=== PATIENT | female | born 1935 | race Two or more races ===

== ENCOUNTER 2018-10-18 10:43 | Outpatient (CLI) | payer MEDICARE | END 2018-10-18 23:59 | disposition home or self-care (01) | LOC: WOU 10:43 | PROVIDERS: ATTEND Podiatrist Foot & Ankle Surgery | DX: L97.512 Non-pressure chronic ulcer of other part of right foot with fat layer exposed (principal); L03.115 Cellulitis of right lower limb; M20.41 Other hammer toe(s) (acquired), right foot; Z79.82 Long term (current) use of aspirin; Z87.891 Personal history of nicotine dependence | CPT/HCPCS: 11042; A6402; Z7610 ==

== ENCOUNTER 2018-10-25 10:45 | Outpatient (CLI) | payer MEDICARE | END 2018-10-25 23:59 | disposition home health service (06) | LOC: WOU 10:45 | PROVIDERS: ATTEND Podiatrist Foot & Ankle Surgery | DX: L84 Corns and callosities (principal); M20.41 Other hammer toe(s) (acquired), right foot; R60.0 Localized edema; Z87.2 Personal history of diseases of the skin and subcutaneous tissue; Z79.82 Long term (current) use of aspirin | CPT/HCPCS: A6402; G0463; Z7610 ==

== ENCOUNTER 2018-11-11 12:43 | Outpatient (CLI) | payer MEDICARE | END 2018-11-11 23:59 | disposition home health service (06) | LOC: WOU 12:43 | PROVIDERS: ATTEND Podiatrist Foot & Ankle Surgery | DX: L89.892 Pressure ulcer of other site, stage 2 (principal); M20.41 Other hammer toe(s) (acquired), right foot; M79.671 Pain in right foot; Z79.82 Long term (current) use of aspirin | CPT/HCPCS: A6402; G0463 ==

== ENCOUNTER 2018-11-25 11:00 | Outpatient (CLI) | payer MEDICARE | END 2018-11-25 23:59 | disposition home health service (06) | LOC: WOU 11:00 | PROVIDERS: ATTEND Podiatrist Foot & Ankle Surgery | DX: L97.519 Non-pressure chronic ulcer of other part of right foot with unspecified severity (principal); R60.0 Localized edema; L90.9 Atrophic disorder of skin, unspecified; L84 Corns and callosities | CPT/HCPCS: G0463; Z7610 ==

== ENCOUNTER 2018-12-30 10:45 | Outpatient (CLI) | payer MEDICARE | END 2018-12-30 23:59 | disposition home health service (06) | LOC: WOU 10:45 | PROVIDERS: ATTEND Podiatrist Foot & Ankle Surgery | DX: M20.40 Other hammer toe(s) (acquired), unspecified foot (principal); B35.1 Tinea unguium; L84 Corns and callosities; M62.81 Muscle weakness (generalized); L90.9 Atrophic disorder of skin, unspecified | CPT/HCPCS: A6402; G0463 ==

== ENCOUNTER 2019-03-23 10:08 | Inpatient (IN) | payer MEDICARE ==
[~2019-03-23] VITALS: Ht 157.5 cm; Wt 59.4 kg
--- NOTE | 2019-03-23 10:25 | NUR ---
BIB FAMILY FROM HOME C/O BRIEF MOMENT OF ALTERED MENTAL STATUS THAT LASTED FOR ABOUT A MINUTE. PER DAUGHTER SHE ALSO NOTICED THE SAME SYMPTOMS FEW WEEKS AGO BUT LASTED FOR 3-5 SECONDS ONLY. PT PLACED ON THE MONITOR AND HOSPITAL GOWN. AWAITING MD FOR EVAL.
[2019-03-23 10:56] LABS: BASOPHILS # (AUTO) 0.1 /CMM (0.0-0.2); BASOPHILS % (AUTO) 0.5 % (0.0-2.0); EOSINOPHILS % (AUTO) 2.1 % (0.0-6.0); HEMATOCRIT 36 % (33-45); HEMOGLOBIN 12.6 g/dL (11.5-14.8); LYMPHOCYTES # (AUTO) 1.6 /CMM (0.8-4.8); LYMPHOCYTES % (AUTO) 16.1 % (20.0-44.0); MEAN CORPUSCULAR HGB CONC 35 g/dl (31.0-36.0); MEAN CORPUSCULAR VOLUME 96 fL (82-100); MONOCYTES # (AUTO) 0.8 /CMM (0.1-1.30); MONOCYTES % (AUTO) 7.9 % (2.0-12.0); NEUTROPHILS # (AUTO) 7.4 /CMM (1.8-8.9); NEUTROPHILS % (AUTO) 73.4 % (43.0-81.0); PLATELET COUNT (AUTO) 273 /CMM (150-450); RED BLOOD CELL COUNT(AUTO) 3.79 MIL/uL (4.0-5.2); WHITE BLOOD COUNT (AUTO) 10.1 K/uL (4.3-11.0)
[2019-03-23] MEDS ORDERED: IV NS 0.9% 500 ML BAG IV ONE (11:00)
[2019-03-23 11:03] LABS: CALCIUM, SERUM 9.4 mg/dL (8.5-10.1); CARBON DIOXIDE 28 mmol/L (21-32); CHLORIDE 97 mmol/L (98-107); CREATININE 0.7 mg/dL (0.6-1.3); GLUCOSE 148 mg/dL (74-106); POTASSIUM 4.3 mmol/L (3.5-5.1); SODIUM SERUM 133 mmol/L (136-145); UREA NITROGEN, BLOOD 20 mg/dL (7-18)
[2019-03-23 11:09] LABS: ALANINE AMINOTRANSFERASE 11 U/L (12-78); ALBUMIN 3.6 g/dL (3.4-5.0); ALKALINE PHOSPHATASE 92 U/L (46-116); ASPARTATE AMINOTRANSFERASE 20 U/L (15-37); BILIRUBIN,DIRECT 0.1 mg/dL (0.0-0.2); BILIRUBIN,TOTAL 0.4 mg/dL (0.2-1.0); TOTAL PROTEIN, SERUM 8.2 g/dL (6.4-8.2)
[2019-03-23] MEDS ORDERED: ASPI-1169 PO (11:12)
[2019-03-23] MEDS ORDERED: FESO8TAB PO (11:12)
[2019-03-23] MEDS ORDERED: ASCO500T9 PO (11:12)
[2019-03-23] MEDS ORDERED: ATEN50TA PO (11:12)
[2019-03-23] MEDS ORDERED: AMLO1CAP9 PO (11:12)
[2019-03-23] MEDS ORDERED: ATOR10TA PO (11:12)
[2019-03-23] MEDS ORDERED: CARB-93 PO (11:12)
[2019-03-23] MEDS ORDERED: ALPR0.5T8 PO (11:12)
[2019-03-23] MEDS ORDERED: MULT-1201 PO (11:12)
[2019-03-23] MEDS ORDERED: LACT-179 PO (11:12)
[2019-03-23] MEDS ORDERED: CYAN10009 PO (11:12)
[2019-03-23] MEDS ORDERED: [UNRECOGNIZED DRUG - MIXTURE] PO (11:22)
[2019-03-23] MEDS ORDERED: POLY17PO4 PO (11:22)
--- NOTE | 2019-03-23 11:25 | NUR ---
CALLED FOR TELE BED, TURNED IN MOVE SHEET
--- NOTE | 2019-03-23 11:29 | NUR ---
CALLED [facility], HAD DR RIOS PAGED
[2019-03-23 11:32] LABS: APPEARANCE,URINE Clear (CLEAR); BILIRUBIN,URINE Negative (NEGATIVE); BLOOD, URINE Negative Ery/uL (NEGATIVE); COLOR,URINE Yellow (YELLOW); KETONES,URINE Negative (NEGATIVE); LEUKOCYTE ESTERASE ,URINE Trace (NEGATIVE); NITRITE, URINE Negative (NEGATIVE); PH,URINE 7.5 (5.0-8.0); PROTEIN,URINE Negative (NEGATIVE); UGLUCOSE Negative (NEGATIVE); UROBILINOGEN,URINE 0.2 EU/dL (0.2)
[2019-03-23 11:38] LABS: BACTERIA,URINE Few /HPF (None Seen); RBC,URINE 0-2 /HPF (0-2); SQUAMOUS EPITHELIAL CELL,UR Few /HPF (None Seen)
--- NOTE | 2019-03-23 11:53 | NUR ---
TELE BED [id number]
[2019-03-23] MEDS ORDERED: IV NS 0.9% 1,000 ML IV PRN (12:14)
--- NOTE | 2019-03-23 12:25 | NUR ---
REPORT GIVEN TO RJ LEWIS FOR AWILDA TELE [phone].
[2019-03-23] MEDS ORDERED: Z GUARD REMEDY 2 OZ OINT TP PRN (12:30)
[2019-03-23] MEDS ORDERED: MAGNESIUM HYDROXIDE 30 ML UDC PO PRN (12:30)
[2019-03-23] MEDS ORDERED: MAG HYDROX/AL HYDROX/SIMETH 30 ML UDC PO PRN (12:30)
[2019-03-23] MEDS ORDERED: HYDROCODONE/APAP 5/325MG 1 EACH TABLET PO PRN (12:30)
[2019-03-23] MEDS ORDERED: ACETAMINOPHEN 325 MG TABLET PO PRN (12:30)
[2019-03-23] MEDS ORDERED: ONDANSETRON HCL/PF 4 MG/2 ML VIAL IVP PRN (12:30)
[2019-03-23] MEDS ORDERED: ZOLPIDEM TARTRATE 5 MG TABLET PO PRN (12:30)
--- NOTE | 2019-03-23 13:25 | NUR ---
STORAGE ARCHITECT NOTES PT AWAKE AND ALERT. NO COMPLAINTS OF PAIN, SOB OR DISTRESS. PT TELE MONITORED NSR. SKIN INTACT. PT HAS RIGHT FA#20 INTACT AND PATENT. FAMILY AT BEDSIDE. SAFETY PRECAUTIONS IN PLACE, BED IN LOWEST LOCKED POSITION, X2 SIDE RAILS UP AND CALL LIGHT WITHIN REACH. WILL CONTINUE TO MONITOR.
--- NOTE | 2019-03-23 14:31 | NUR ---
RN NOTES PATIENT DAUGHTER STATED THAT PATIENT TAKES LEVODOPA CARBIDOPA WITH ENSURE. CALLED DIETARY, WILL BRING UP. THEN WILL ADMINISTER MEDICATION.
[2019-03-23] MEDS: CARBIDOPA/LEVODOPA 25/100 MG 1 UDTAB PO SCH ×2 (15:15→18:34)
[2019-03-23 16:00] VITALS: BP 159/77
[2019-03-23] MEDS ORDERED: ENSURE ENLIVE CHOC 237 ML CAN PO SCH (17:00)
[2019-03-23 17:30] VITALS: BP 130/78
[2019-03-23 17:32] VITALS: BP 140/79
[2019-03-23] MEDS ORDERED: ALPRAZOLAM 0.5 MG TABLET PO SCH ×2 (18:00→22:00)
[2019-03-23] MEDS ORDERED: ATORVASTATIN 10 MG TABLET PO SCH (18:00)
--- NOTE | 2019-03-23 18:26 | NUR ---
RN NOTES PT REQUESTED CARBIDOPA LEVODOPA GIVEN 30 MIN AFTER MEAL. WILL FOLLOW UP.
--- NOTE | 2019-03-23 19:30 | NUR ---
SCIENTIFIC HELPER NOTES RECEIVED PT IN BED AWAKE AND ABLE TO MAKE NEEDS KNOWN WITH FAMILY AT BEDSIDE. PT A/O X3. RESPIRATIONS EVEN AND UNLABORED WITH NO S/S OF ACUTE DISTRESS OR SOB NOTED. PT DENIES PAIN AT THIS TIME. PT WITH RFA #20G RUNNING NS @75ML/HR, WITH NO S/S OF INFILTRATION OR REDNESS. SAFETY MEASURES IN PLACE WITH BED IN LOWEST LOCKED POSITION WITH SIDE RAILS UP X2. CALL LIGHT WITHIN REACH. WILL CONTINUE TO MONITOR.
--- NOTE | 2019-03-23 19:36 | NUR ---
RN CLOSING NOTES PT AWAKE AND ALERT. NO COMPLAINTS OF PAIN, SOB OR DISTRESS DURING SHIFT. PT TELE MONITORED NSR. SKIN INTACT. PT HAS RIGHT FA#20 INTACT AND PATENT. FAMILY AT BEDSIDE. SAFETY PRECAUTIONS IN PLACE, BED IN LOWEST LOCKED POSITION, X2 SIDE RAILS UP AND CALL LIGHT WITHIN REACH. WILL ENDORSE TO BARBERING TEACHER NURSE FOR CONTINUITY OF CARE.
[2019-03-23 21:43] VITALS: BP 140/63
[2019-03-23] MEDS ORDERED: CARBIDOPA/LEV CR 50/200 MG 1 UDTAB.SA PO SCH (22:00)
[2019-03-23 23:53] VITALS: BP 121/67
[2019-03-24 04:15] VITALS: BP 144/78
[2019-03-24 06:25] LABS: BASOPHILS % (AUTO) 0.3 % (0.0-2.0); EOSINOPHILS % (AUTO) 4.4 % (0.0-6.0); HEMATOCRIT 33 % (33-45); HEMOGLOBIN 11.3 g/dL (11.5-14.8); LYMPHOCYTES # (AUTO) 1.9 /CMM (0.8-4.8); LYMPHOCYTES % (AUTO) 24.9 % (20.0-44.0); MEAN CORPUSCULAR HGB CONC 34 g/dl (31.0-36.0); MEAN CORPUSCULAR VOLUME 96 fL (82-100); MONOCYTES # (AUTO) 0.8 /CMM (0.1-1.30); NEUTROPHILS # (AUTO) 4.6 /CMM (1.8-8.9); NEUTROPHILS % (AUTO) 59.4 % (43.0-81.0); PLATELET COUNT (AUTO) 228 /CMM (150-450); RED BLOOD CELL COUNT(AUTO) 3.49 MIL/uL (4.0-5.2); WHITE BLOOD COUNT (AUTO) 7.7 K/uL (4.3-11.0)
[2019-03-24 07:02] LABS: CALCIUM, SERUM 9.1 mg/dL (8.5-10.1); CARBON DIOXIDE 22 mmol/L (21-32); CHLORIDE 100 mmol/L (98-107); CREATININE 0.6 mg/dL (0.6-1.3); GLUCOSE 92 mg/dL (74-106); MAGNESIUM 1.8 mg/dL (1.8-2.4); PHOSPHORUS 3.1 mg/dL (2.5-4.9); POTASSIUM 4.1 mmol/L (3.5-5.1); SODIUM SERUM 133 mmol/L (136-145); UREA NITROGEN, BLOOD 14 mg/dL (7-18)
[2019-03-24 07:03] LABS: CHOLESTEROL 116 mg/dL (<200); HDL CHOLESTEROL 51 mg/dL (40-60); LDL 65 mg/dL (0-99); THYROID STIMULATING HORMONE 0.789 uIU/mL (0.358-3.74); TRIGLYCERIDES 41 mg/dL (30-150)
--- NOTE | 2019-03-24 07:20 | NUR ---
RADON INSPECTOR OPENING NOTES RECEIVED PT AWAKE IN BED WITH DAUGHTER AT BEDSIDE. A/O X4. [place] AND VERBALLY RESPONSIVE, DENIES PAIN OR ANY DISCOMFORTS AT THIS TIME. ON TELE-MONITORING WITH CURRENT READING OF SB WITH HR OF 55 AT THIS TIME, NO C/O CARDIAC DISTRESS VOICED. ON ROOM AIR, BREATHING EVEN AND UNLABORED. IV ACCESS ON RFA G#20 INTACT AND PATENT, IVF OF NS @ 75ML/HR INFUSING WELL, NO S/S OF INFILTRATIONS NOTED. BED IN LOW LOCKED POSITION WITH SR UP X2. CALL LIGHT IN REACH. WILL CONTINUE TO MONITOR.
--- NOTE | 2019-03-24 07:41 | NUR ---
JUICE PACKAGING MACHINES SETTER NOTES PT IN BED AWAKE AND ABLE TO MAKE NEEDS KNOWN WITH FAMILY AT BEDSIDE. PT A/O X3. RESPIRATIONS EVEN AND UNLABORED WITH NO S/S OF ACUTE DISTRESS OR SOB NOTED THROUGHOUT SHIFT. PT DENIES ANY PAIN AT THIS TIME. PT WITH RFA #20G RUNNING NS @75ML/HR, WITH NO S/S OF INFILTRATION OR REDNESS. PT ABLE TO AMB WITH ASSIST TO BSC. SAFETY MEASURES IN PLACE WITH BED IN LOWEST LOCKED POSITION WITH SIDE RAILS UP X2. CALL LIGHT WITHIN REACH. WILL ENDORSE TO ONCOMING NURSE FOR AWILDA.
[2019-03-24 08:00] VITALS: BP 144/62
[2019-03-24] MEDS ORDERED: IV NS 0.9% 1,000 ML IV SCH (08:20)
[2019-03-24] MEDS: CARBIDOPA/LEVODOPA 25/100 MG 1 UDTAB PO SCH ×2 (08:24→12:50)
[2019-03-24 08:25] VITALS: BP 144/62
[2019-03-24 08:51] LABS: IRON, SERUM 71 ug/dl (50-175); TOTAL IRON BINDING CAPACITY 205 ug/dl (250-450)
[2019-03-24] MEDS ORDERED: ATENOLOL 50 MG TABLET PO SCH (09:00)
[2019-03-24] MEDS ORDERED: POLYETHYLENE GLYCOL 3350 17 GM POWD.PACK PO SCH (09:00)
[2019-03-24] MEDS ORDERED: CYANOCOBALAMIN 500 MCG TABLET PO SCH (09:00)
[2019-03-24] MEDS ORDERED: ENSURE ENLIVE CHOC 237 ML CAN PO SCH ×2 (09:00→12:00)
[2019-03-24] MEDS ORDERED: ASPIRIN 81 MG TAB.CHEW PO SCH (09:00)
[2019-03-24] MEDS ORDERED: ASCORBIC ACID 500 MG TABLET PO SCH (09:00)
[2019-03-24] MEDS ORDERED: BENAZEPRIL HCL 10 MG TABLET PO SCH (09:00)
[2019-03-24 10:29] LABS: FERRITIN 177 ng/mL (8-388)
--- NOTE | 2019-03-24 14:23 | NUR ---
LUMBER SORTER NOTES PATIENT DISCHARGED HOME IN STABLE CONDITION. A/O X3 AND VERBALLY RESPONSIVE. PT'S DAUGHTER NGOC AT BEDSIDE. V/S TAKEN AND RECORDED. SKIN IS INTACT. PT IS UP TO DATE WITH HER VACCINATIONS. ALL BELONGINGS ACCOUNTED FOR AND SIGNED FORM BY DAUGHTER. IV ACCESS ON RAC REMOVED WITH NO BLEEDING NOTED. NAME ARMBAND REMOVED. HEALTH TEACHINGS/DISCHARGE INSTRUCTIONS GIVEN TO PT AND DAUGHTER, BOTH VERBALIZED UNDERSTANDING. PT LEFT UNIT AT 1415 VIA WHEELCHAIR ACCOMPANIED BY SEALER DRY CELL AND PT'S DAUGHTER NGOC. MD AND CHARGE NURSE AWARE OF DISCHARGE.
== END 2019-03-24 14:00 | disposition home or self-care (01) | DRG 312 ==
LOC: ER 10:11 → TELE 12:11 → MED 03-24 08:50
DX: R55 Syncope and collapse (principal); E87.1 Hypo-osmolality and hyponatremia; E86.0 Dehydration; G20 Parkinson's disease; I10 Essential (primary) hypertension; E78.5 Hyperlipidemia, unspecified; D64.9 Anemia, unspecified; G62.9 Polyneuropathy, unspecified; R79.89 Other specified abnormal findings of blood chemistry
CPT/HCPCS: 36415; 70450-TC; 71045-TC; 80048-TC; 80061-TC; 80076-TC; 81000-TC; 82728-TC; 83540-TC; 83735-TC; 84100-TC; 84443-TC; 84484-TC; 85025-TC; 85730-TC; 87081-TC; 87086-TC; 93307-TC; 93880-TC; 97116-TC; 97530-TC; G0378; J7030; J7040

== ENCOUNTER 2021-12-20 12:17 | Emergency (ER) | payer MEDICARE ==
[~2021-12-20] VITALS: Ht 167.6 cm; Wt 54.4 kg
[~2021-12-20 12:17] MED LIST: ALPR0.5T8 PO; AMLO-102 PO; ASCO-352 PO; ASPI-1169 PO; ATEN50TA PO; ATOR10TA PO; CARB-300 PO; CYAN-51 PO; FESO8TAB PO; LACT-179 PO; MULT-1201 PO; POLY17PO4 PO; [UNRECOGNIZED DRUG - MIXTURE] PO
--- NOTE | 2021-12-20 12:17 | NUR ---
PT BIBRA 860 FROM HOME C/O LEFT SIDED ABDOMINAL PAIN STARTED 4 HRS PRODUCTION SORTER. PT IS AAOX2, NOT IN RESPIRATORY DISTRESS, HOOKED TO LEARNING TECHNOLOGIST, KEPT RESTED AND COMFORTABLE. WILL CONTINUE TO MONITOR.
[2021-12-20 13:16] LABS: BASOPHILS # (AUTO) 0.1 K/uL (0.0-0.2); BASOPHILS % (AUTO) 0.8 % (0.0-2.0); EOSINOPHILS % (AUTO) 1.2 % (0.0-6.0); HEMATOCRIT 37 % (33-45); HEMOGLOBIN 11.9 g/dL (11.5-14.8); LYMPHOCYTES # (AUTO) 1.9 K/uL (0.8-4.8); LYMPHOCYTES % (AUTO) 17.5 % (20.0-44.0); MEAN CORPUSCULAR HGB CONC 33 g/dl (31.0-36.0); MEAN CORPUSCULAR VOLUME 94 fL (82-100); MONOCYTES # (AUTO) 1.2 K/uL (0.1-1.30); MONOCYTES % (AUTO) 10.5 % (2.0-12.0); NEUTROPHILS # (AUTO) 7.8 K/uL (1.8-8.9); PLATELET COUNT (AUTO) 287 K/uL (150-450); RED BLOOD CELL COUNT(AUTO) 3.89 MIL/uL (4.0-5.2); WHITE BLOOD COUNT (AUTO) 11.1 K/uL (4.3-11.0)
[2021-12-20 13:25] LABS: CALCIUM, SERUM 8.9 mg/dL (8.5-10.1); CARBON DIOXIDE 28 mmol/L (21-32); CHLORIDE 96 mmol/L (98-107); CREATININE 0.5 mg/dL (0.6-1.3); GLUCOSE 88 mg/dL (74-106); SODIUM SERUM 133 mmol/L (136-145); UREA NITROGEN, BLOOD 22 mg/dL (7-18)
--- NOTE | 2021-12-20 13:34 | NUR ---
urine sample collected via straight catheter. sent sample to lab
[2021-12-20 13:38] LABS: ALANINE AMINOTRANSFERASE 9 U/L (12-78); ALBUMIN 3.2 g/dL (3.4-5.0); ALKALINE PHOSPHATASE 127 U/L (46-116); ASPARTATE AMINOTRANSFERASE 19 U/L (15-37); BILIRUBIN,DIRECT 0.2 mg/dL (0.0-0.2); BILIRUBIN,TOTAL 0.6 mg/dL (0.2-1.0); LIPASE 35 U/L (73-393); TOTAL PROTEIN, SERUM 7.9 g/dL (6.4-8.2)
[2021-12-20 13:47] LABS: BILIRUBIN,URINE NEGATIVE (NEGATIVE); COLOR,URINE YELLOW (YELLOW); LEUKOCYTE ESTERASE ,URINE LARGE (NEGATIVE); NITRITE, URINE POSITIVE (NEGATIVE); PROTEIN,URINE NEGATIVE (NEGATIVE); UGLUCOSE NEGATIVE (NEGATIVE); UROBILINOGEN,URINE 0.2 EU/dL (0.2)
[2021-12-20 14:10] LABS: BACTERIA,URINE Many /HPF (None Seen); SQUAMOUS EPITHELIAL CELL,UR Rare /HPF (None Seen); WBC,URINE TOO NUMEROUS TO COUN /HPF (0-3)
[2021-12-20] MEDS ORDERED: CEFTRIAXONE 1GM BAG (ER ONLY) 50 ML IV ONE ×2 (14:28→14:30)
[2021-12-20] MEDS ORDERED: IV NS 0.9% 500 ML BAG IV ONE (14:30)
--- NOTE | 2021-12-20 16:44 | NUR ---
IV removed. Catheter intact and site benign. Pressure and 4x4 applied to site. No bleeding noted.Patient discharged to home in stable condition with daughter. Written and verbal after care instructions given. Patient and daughter verbalizes understanding of instruction.
[2021-12-20] MEDS ORDERED: CEPH500T PO (17:10)
[2021-12-20 17:30] VITALS: BP 108/64
== END 2021-12-20 16:49 | disposition home or self-care (01) ==
LOC: ER 12:19
DX: R10.9 Unspecified abdominal pain (principal); N39.0 Urinary tract infection, site not specified; M84.48XA Pathological fracture, other site, initial encounter for fracture; K44.9 Diaphragmatic hernia without obstruction or gangrene; G20 Parkinson's disease; F02.80 Dementia in other diseases classified elsewhere, unspecified severity, without behavioral disturbance, psychotic disturbance, mood disturbance, and anxiety; I10 Essential (primary) hypertension; E78.5 Hyperlipidemia, unspecified; Z79.1 Long term (current) use of non-steroidal anti-inflammatories (NSAID); Z79.02 Long term (current) use of antithrombotics/antiplatelets; Z79.82 Long term (current) use of aspirin; Z79.899 Other long term (current) drug therapy
CPT/HCPCS: 36415; 71045; 74176; 80048; 80076; 81001; 83690; 84484; 85025; 87077; 87086; 87186; 93005; 96365; 99285; J0696; J7040